=== PATIENT | female | born 1995 | race Caucasian/White ===

== ENCOUNTER 2021-08-23 13:52 | Emergency (ER) | payer BC, SELFPAY ==
[2021-08-24 17:29] LABS: SARS-CoV-2 PCR by NAA DETECTED (NotDetected)
== END 2021-08-23 14:45 | disposition home or self-care (01) ==
LOC: NAV ERS 13:52
DX: U07.1 COVID-19 (principal); J06.9 Acute upper respiratory infection, unspecified
CPT/HCPCS: 99283; U0003; U0005

== ENCOUNTER 2022-07-30 05:18 | Emergency (ER) | payer BC, OTHER ==
[2022-07-30] MEDS ORDERED: hydrALAZINE 20 MG/ML VIAL ONE (05:33)
[2022-07-30 06:03] LABS: Bilirubin Negative (Negative); Blood, Urine Negative (Negative); Clarity Clear (Clear); Glucose, Urine (Dipstick) Negative (Negative); Ketone, Urine Negative (Negative); Leukocyte Negative (Negative); Nitrite Negative (Negative); Protein, Urine (Dipstick) 100 mg/dL (Neg-Trace); Urobilinogen 0.2 mg/dL (Less than 2); pH, Urine 6.5 (5.0-9.0)
[2022-07-30 06:05] LABS: #Basophils 0.1 thou/uL (0.0-0.2); #Eosinphils 0.1 thou/uL (0.0-0.7); #Lymphocytes 2.7 thou/uL (1.20-3.40); #Monocytes 0.7 thou/uL (0.11-0.59); #Neutrophils 9.1 thou/uL (1.40-6.50); %Basophils 1.1 % (0.0-1.0); %Lymphocytes 21.3 % (21.0-51.0); %Monocytes 5.4 % (0.0-10.0); %Neutrophils 71.2 % (42.0-75.0); Hemoglobin 13.1 g/dL (12.0-16.0); Mean Corpuscular HGB CONC 33.6 g/dL (32.0-36.0); Mean Corpuscular Hemoglobin 29.8 pg (27.0-31.0); Mean Corpuscular Volume 88.9 fl (78.0-98.0); Mean Platelet Volume 8.8 fL (7.4-10.4); Platelet Count 181 10x3/uL (130-400); RBC Distribution Width 12.4 % (11.5-14.5); Red Blood Cell (RBC) Count 4.39 mill/uL (4.20-5.40); White Blood Cell (WBC) Count 12.7 10x3/uL (4.8-10.8)
[2022-07-30 06:07] LABS: Bacteria/HPF None Seen HPF (None Seen); RBC/HPF 0-3 HPF (0-3); WBC/HPF 0-3 HPF (0-3)
[2022-07-30 06:15] LABS: ALT (SGPT) 11 U/L (8-55); AST (SGOT) 14 U/L (5-34); Albumin 3.1 g/dL (3.5-5.0); Alkaline Phosphatase 87 U/L (40-110); Anion Gap 14 mmol/L (10-20); BUN (Urea Nitrogen) 15 mg/dL (7.0-18.7); Calc. Creatinine Clearance 0 mL/min (70-130); Carbon Dioxide 20 mmol/L (22-29); Chloride 107 mmol/L (98-107); Estimated GFR 124; Glucose 108 mg/dL (70-105); Potassium 4.1 mmol/L (3.5-5.1); Protein, Total 6.1 g/dL (6.0-8.3); Sodium 137 mmol/L (136-145)
[2022-07-30 06:47] LABS: Calcium 9.7 mg/dL (7.6-10.4)
[2022-07-30 07:05] LABS: Bilirubin, Total 0.2 mg/dL (0.2-1.2)
[2022-07-30 09:32] LABS: Magnesium 1.6 mg/dL (1.6-2.6)
[2022-07-30] MEDS ORDERED: Sodium Chloride 0.9% 100 ML ONE (09:36)
[2022-07-30] MEDS ORDERED: Labetalol HCl 100 MG/20 ML VIAL ONE ×2 (09:36→12:00)
[2022-07-30] MEDS ORDERED: Magnesium 5 GM/10 ML Abboject SYRINGE ONE (09:36)
[2022-07-30] MEDS ORDERED: Sodium Chloride 0.65% Nasal 44 ML BOT EA NARE SCH (11:45)
[2022-07-30] MEDS ORDERED: Magnesium 2 GM/50 ML BAG (IN WATER) ONE ×2 (13:16→14:24)
[2022-07-30] MEDS ORDERED: Benzocaine 20% Spray 60 ML CAN ONE (13:47)
[2022-07-30] MEDS ORDERED: Lidocaine 2% Jelly 5 ML TUBE ONE (13:47)
== END 2022-07-30 15:23 | disposition short-term general hospital (02) ==
LOC: NAV ERS 05:18
DX: O11.3 Pre-existing hypertension with pre-eclampsia, third trimester (principal); I16.1 Hypertensive emergency; Z3A.30 30 weeks gestation of pregnancy; Z79.899 Other long term (current) drug therapy
CPT/HCPCS: 51702; 80053; 81003; 81015; 83735; 84484; 85025; 93005; 96365; 96366; 96375; 96376; J0360; J3475

== ENCOUNTER 2024-02-04 14:35 | Emergency (ER) | payer BC, OTHER ==
[2024-02-04] MEDS ORDERED: Metoclopramide HCl 10 MG (2 mL) VIAL ONE (15:12)
[2024-02-04] MEDS ORDERED: Sodium Chloride 0.9% 1,000 ML ONE (15:13)
[2024-02-04] MEDS ORDERED: Cyclobenzaprine 10 MG TAB ONE (15:13)
[2024-02-04] MEDS ORDERED: Ketorolac Tromethamine 30 MG (1 mL) VIAL ONE (15:57)
[2024-02-04] MEDS ORDERED: Sodium Chloride 0.9% 500 ML ONE (16:25)
== END 2024-02-04 17:05 | disposition home or self-care (01) ==
LOC: NAV ERS 14:35
DX: G44.209 Tension-type headache, unspecified, not intractable (principal); R03.0 Elevated blood-pressure reading, without diagnosis of hypertension; E86.0 Dehydration; I10 Essential (primary) hypertension; Z79.899 Other long term (current) drug therapy
CPT/HCPCS: 96361; 96365; 96375; J1885; J2765; J7030; J7050

== ENCOUNTER 2024-03-25 19:38 | Emergency (ER) | payer BC ==
[2024-03-25] MEDS ORDERED: Bacitracin 1 PK ONE (20:05)
== END 2024-03-25 20:17 | disposition home or self-care (01) ==
LOC: NAV ERS 19:38
DX: S61.012A Laceration without foreign body of left thumb without damage to nail, initial encounter (principal); I10 Essential (primary) hypertension; Z79.899 Other long term (current) drug therapy; W26.0XXA Contact with knife, initial encounter
CPT/HCPCS: 12001

== ENCOUNTER 2024-04-02 14:37 | Emergency (ER) | payer BC | END 2024-04-02 14:59 | disposition left against medical advice (07) | LOC: NAV ERS 14:37 | DX: Z53.21 Procedure and treatment not carried out due to patient leaving prior to being seen by health care provider (principal) ==